=== PATIENT | female | born 1940 | race Asian ===

== ENCOUNTER 2020-01-05 09:29 | Emergency (ER) | payer OTHER, MEDICAID, SELFPAY ==
[~2020-01-05] VITALS: Ht 154.9 cm; Wt 47.6 kg
[2020-01-05 09:34] VITALS: BP_SYST 151
[2020-01-05] MEDS ORDERED: ACET325T39 PO (09:57)
[2020-01-05] MEDS ORDERED: CELE-85 PO (09:58)
[2020-01-05] MEDS ORDERED: IBUP-1507 PO (09:58)
[2020-01-05] MEDS ORDERED: EPOE200011 SUBQ (09:58)
[2020-01-05] MEDS ORDERED: ONDA4TAB5 PO (09:58)
[2020-01-05] MEDS ORDERED: MULT-300 PO (09:58)
[2020-01-05] MEDS ORDERED: ACET-2634 PO (09:58)
[2020-01-05] MEDS ORDERED: ALBU2.5V7 INH (09:58)
[2020-01-05] MEDS ORDERED: MELA5TAB12 PO (09:58)
[2020-01-05] MEDS ORDERED: ASCO500T10 PO (09:58)
[2020-01-05] MEDS ORDERED: IMAT400T PO (09:58)
[2020-01-05] MEDS ORDERED: D-ME473S17 PO (09:58)
[2020-01-05] MEDS ORDERED: ALL300 PO (09:58)
[2020-01-05 10:25] LABS: BASOPHILS % (AUTO) 0.7 % (0.0-2.0); EOSINOPHILS # (AUTO) 0.1 K/uL (0.0-0.4); HEMATOCRIT 31.7 % (36-48); HEMOGLOBIN 10.5 g/dL (12.0-16.0); LYMPHOCYTES # (AUTO) 1.7 K/uL (1.0-5.5); LYMPHOCYTES % (AUTO) 51.8 % (20.5-51.5); MEAN CORPUSCULAR HEMOGLOBIN 35 pg (27-31); MEAN CORPUSCULAR HGB CONC 33 % (32-36); MEAN CORPUSCULAR VOLUME 105 fL (79.0-98.0); MONOCYTES # (AUTO) 0.4 K/uL (0.0-1.0); MONOCYTES % (AUTO) 12.8 % (1.7-9.3); NEUTROPHILS # (AUTO) 1.1 K/uL (1.8-7.7); NEUTROPHILS % (AUTO) 32.7 % (40.0-70.0); PLATELET COUNT (AUTO) 150 K/uL (130-430); RED BLOOD CELL COUNT(AUTO) 3.01 MIL/uL (4.2-6.2); RED CELL DISTRIBUTION WIDTH 14.7 % (9.0-15.0); WHITE BLOOD COUNT (AUTO) 3.3 K/uL (4.8-10.8)
[2020-01-05 10:38] LABS: ANION GAP 7 (5-15); CHLORIDE 101 mmol/L (98-107); CREATININE 1.19 mg/dL (0.55-1.30); GLUCOSE 101 mg/dL (70-99); POTASSIUM 3.9 mmol/L (3.5-5.1); SODIUM SERUM 138 mmol/L (136-145); UREA NITROGEN, BLOOD 29 mg/dL (8-21)
[2020-01-05 10:43] LABS: ALANINE AMINOTRANSFERASE 28 U/L (12-78); ALBUMIN 3.6 g/dL (3.4-4.8); ASPARTATE AMINOTRANSFERASE 33 U/L (10-37); TOTAL BILIRUBIN 0.3 mg/dL (0.0-1.0)
[2020-01-05 13:34] VITALS: BP_SYST 117
== END 2020-01-05 13:34 ==
LOC: SED 09:29 → EEVIPCON 09:29 → SED 13:34
DX: J02.9 Acute pharyngitis, unspecified (principal); J44.9 Chronic obstructive pulmonary disease, unspecified; I10 Essential (primary) hypertension; E11.9 Type 2 diabetes mellitus without complications; Z79.899 Other long term (current) drug therapy; Z20.828 Contact with and (suspected) exposure to other viral communicable diseases
CPT/HCPCS: 71045; 80053; 85025; 87040-TC; 99285